=== PATIENT | male | born 2000 | race Caucasian/White ===

== ENCOUNTER 2023-12-24 00:35 | Emergency (ER) | payer OTHER, SELFPAY ==
[2023-12-24 00:36] VITALS: BP 151/68; PULSE 75; RESP 22; TEMP 36.8; O2SAT 98; BMI 28.8
[2023-12-24] MEDS: cycloBENZAPRine HCl 10 MG Tablet PO (01:04)
[2023-12-24] MEDS: HYDROcodone Bitartrate/Apap 5/325 Tablet PO (01:04)
[2023-12-24] MEDS: Naproxen 500 MG Tablet PO (01:04)
[2023-12-24] MEDS: Ondansetron 4 MG/2 ML Vial IV (01:54)
[2023-12-24] MEDS: Morphine 4 MG/ML Syringe IV (01:55)
--- NOTE | 2023-12-24 02:35 | RAD_ITS ---
EXAM: XR LUMBOSACRAL SPINE, 2 OR 3 VIEWS CLINICAL INDICATION: pain pain TECHNIQUE: Frontal and lateral views of the lumbar spine and sacrum. COMPARISON: No relevant prior studies available. FINDINGS: VERTEBRAE: Unremarkable. Preserved vertebral body height. No fracture. No spondylolisthesis. Preservation of the normal lumbar lordosis. No significant facet arthropathy. DISC SPACES: No acute findings. Disc spaces are maintained. GASTROINTESTINAL TRACT: Unremarkable as visualized. Included bowel gas pattern is non-obstructive. RAD/Lumbar Spine 2 or 3 Views IMPRESSION: No evidence of lumbar spinal fracture or spondylolisthesis. Electronically Signed: Timothy To MD at 3:25 EST Reading Location ID and State: [facility] / [place] , Service support ,
[2023-12-24] MEDS: Lidocaine 5% Patch 1 PATCH TOPICAL (03:00)
[2023-12-24] MEDS: Mag Hydrox/Al Hydrox/Simeth 30 ML UDC PO (03:02)
--- NOTE | 2023-12-24 05:13 | EDS_ITS ---
HPI History of Present Illness Chief Complaint: Back Informant: patient Onset/Context/Timing Onset: Days (6 days) Context: Gradual Onset Timing: Waxes and wanes Narrative Narrative: Patient presents secondary to back pain. He is a student at the [employer]. He denies any known back injury, but thinks he pulled a muscle. He states 5 or 6 days ago he noted some tightness that seem to ease by midweek. Yesterday pain was significantly worse and he took Tylenol regularly. Today he is only taken 1 dose of Tylenol but was using a heating pad which seemed to help. Tonight he went to brush his teeth and when he bent over to get his supplies he had worsened back pain. He went to lie in his bed but then was unable to get up and called 911. Pain does not radiate down his legs. He has not had fever or chills. He denies significant history of back injury or procedure. [facility] Medical History ADHD Autism Crohn disease Home Medications cyclobenzaprine 10 mg tablet 10 mg PO TID PRN Muscle Spasm #12 TABLETS 12/24/23 [Rx Last Taken Unknown] hydrocodone-acetaminophen 5-325mg 5mg-325mg 1 tab PO Q6H PRN PRN Pain 3 days #10 TABLETS 12/24/23 [Rx Last Taken Unknown] lisdexamfetamine 20 mg capsule (Vyvanse) 20 mg PO DAILY 12/24/23 [History Last Taken Unknown] naproxen 500 mg tablet (Naprosyn) 500 mg PO BID PRN pain #20 tabs 12/24/23 [Rx Last Taken Unknown] ondansetron 4 mg disintegrating tablet 4 mg PO Q8H PRN PRN Nausea #10 tabs 12/24/23 [Rx Last Taken Unknown] sertraline 50 mg tablet (Zoloft) 50 mg PO DAILY 12/24/23 [History Last Taken Unknown] Allergy/AdvReac Type Severity Reaction Status Date / Time No Known Allergies Allergy Verified 12/24/23 00:39 Social History Smoking Status: Never smoker ROS ROS ED Constitutional Constitutional ED: Denies chills or fever(s) Eyes Eyes: Denies change in vision or discharge from eye(s) ENT ENT ED: Denies discharge from eye(s), rhinorrhea or sore throat Cardiovascular Cardiovascular: Denies chest pain or palpitations Respiratory/Chest Respiratory/Chest: Denies cough or dyspnea Gastrointestinal Gastrointestinal: Denies abdominal pain, nausea or vomiting Genitourinary Genitourinary ED: Denies dysuria Musculoskeletal Musculoskeletal: Reports back pain; Denies extremity pain Integumentary Denies Abrasions or rash Neurologic Neurologic: Denies headache(s), paresthesias or weakness Psychiatric Psychiatric: Denies anxiety or depression Allergic/Immunologic Allergic/Immunologic ED: Denies lip swelling or urticaria EXAM Physical Exam Const Vital Signs: 12/24/23 00:36 Temperature 98.3 F Temperature Source Oral Pulse Rate 75 Respiratory Rate 22 H Blood Pressure 151/68 H Blood Pressure Mean 95 Pulse Ox 98 Oxygen Delivery Method Room Air Positive well nourished and well developed General Appearance ED: well developed HEENT Reports moist mucous membranes Eyes EOMs intact bilaterally Resp normal respiratory effort and clear to auscultation bilaterally Cardio regular rate and regular rhythm GI soft to palpation, non-tender and no masses Back/Spine Back/Spine Narrative: Paraspinal lumbar muscular tenderness bilaterally. No point tenderness. No erythema or skin change. Extremity normal to inspection Extremity Narrative: Straight leg raise negative bilaterally. Neuro oriented x3 and no sensory deficits noted Motor Exam: strength 5/5 throughout Psych mental status grossly normal Skin no rashes or lesions noted MDM MDM MDM Narrative Medical decision making narrative: Patient initially given oral naproxen, Lindsay, and Flexeril. He reported about 1/2-hour later that his pain was worsened. At that time IV line is initiated and he is given a dose of morphine and Zofran. About 1 hour following this patient reported to nursing staff that he was having some chest pain and points to the epigastric region. He states he thinks he has heartburn. He is still having back pain. He was ordered some Mylanta and a Lidoderm patch. He was sent for x-ray imaging of his lumbar spine to ensure no acute bony injury. When I went back to reevaluate the patient he is lying on his right side sleeping comfortably. At this time patient has awoken. He reports some stiffness in his back but significantly improved from his arrival. I will have nursing staff ambulate him. We will discharge patient with Flexeril, Lindsay, and Naprosyn. He is to follow-up with [facility]. Return instructions given. Radiography Diagnostic Testing: Clinical Impression(s) from Imaging Studies Lumbar Spine X-Ray 12/24/23 02:35 IMPRESSION: No evidence of lumbar spinal fracture or spondylolisthesis. Electronically Signed: Timothy To MD at 3:25 EST Reading Location ID and State: [facility] / [place] , Service support , Discharge Plan Triage Chief Complaint: Back ED Provider: Lexis Romero Dx/Rx/DC Orders Clinical Impression: Musculoskeletal back pain Instructions: ED Back Pain (Acute or Chronic), ED Back Spasm, No Trauma Prescriptions: New naproxen [Naprosyn] 500 mg tablet 500 mg PO BID PRN (Reason: pain) Qty: 20 0RF cyclobenzaprine 10 mg tablet 10 mg PO TID PRN (Reason: Muscle Spasm) Qty: 12 0RF hydrocodone-acetaminophen 5-325 mg tablet 1 tab PO Q6H PRN PRN (Reason: Pain) 3 Days Qty: 10 0RF ondansetron 4 mg tablet,disintegrating 4 mg PO Q8H PRN PRN (Reason: Nausea) Qty: 10 0RF No Action lisdexamfetamine [Vyvanse] 20 mg capsule 20 mg PO DAILY sertraline [Zoloft] 50 mg tablet 50 mg PO DAILY Primary Care Provider: Care Physician,No Primary Referrals: [facility] [Group of Physicians] - 3-5 Days if not improving Care Physician,No Primary [Primary Care Provider] - Disposition Disposition: Home, Self Care
[2023-12-24] MEDS: Ondansetron ODT 4 MG Tablet PO (06:56)
[2023-12-24 06:57] VITALS: BP 139/65; PULSE 71; RESP 18; O2SAT 98
== END 2023-12-24 07:00 | disposition home or self-care (01) ==
PROVIDERS: Emergency Provider Emergency Medicine; Visit Provider Emergency Medicine
DX: M54.9 Dorsalgia, unspecified (principal); F90.9 Attention-deficit hyperactivity disorder, unspecified type; F84.0 Autistic disorder; Z79.899 Other long term (current) drug therapy
CPT/HCPCS: 72100; 96374; 96375; 99283; A4216; J2405